=== PATIENT | female | born 1940 | race Caucasian/White ===

== ENCOUNTER 2020-01-31 08:39 | Inpatient (IN) ==
[~2020-01-31 08:39] MED LIST: Acetaminophen IV 1 GM/100ML 1,000 MG/100 ML VIAL IVPB ONE; Buffered Lidocaine 1% SYRIN 1 ml INTRADERM ONE; Dexamethasone IV 4 MG/ML VIAL 1 ml VIAL IV SLOW PU ONE; Famotidine IV 10 MG/ML 2 ml VIAL (20 mg) IV ONE; Lactated Ringers 1000 ml BAG 1,000 ML IV SCH
[2020-01-31] MEDS ORDERED: Acetaminophen IV 1 GM/100ML 100 ML ONE (09:24)
[2020-01-31] MEDS ORDERED: Dexamethasone IV 4 MG/ML VIAL 1 ml VIAL ONE (09:24)
[2020-01-31] MEDS ORDERED: ceFAZolin 2 GM PREMIX 2 GM/50 ML BAG ONE (09:24)
[2020-01-31] MEDS ORDERED: Famotidine IV 10 MG/ML 2 ml VIAL (20 mg) ONE (09:25)
[2020-01-31] MEDS ORDERED: Midazolam 2 mg/2 ml VIAL 1 mg/ml 2 ml VIAL (2 mg) ONE (10:18)
[2020-01-31] MEDS ORDERED: fentaNYL 100 mcg/2 ml 50 MCG/ML VIAL ONE (10:18)
[2020-01-31] MEDS ORDERED: ROPIVACAINE 5 MG/ML 30 ML BTL (0.5%) ONE (10:38)
[2020-01-31] MEDS ORDERED: Lidocaine 1% MPF 5 ML VIAL ONE (10:39)
[2020-01-31] MEDS ORDERED: Dexmedetomidine 200 mcg/2 ml 2 ml VIAL (200 mcg) ONE (10:40)
[2020-01-31] MEDS ORDERED: Lidocaine 2% PF 5 ML VIAL ONE ×2 (10:50→13:34)
[2020-01-31] MEDS ORDERED: EPHEDrine (Pressors) 50 MG/ML VIAL ONE (12:19)
[2020-01-31] MEDS ORDERED: HYDROmorphone 1 MG/1 ML SYRINGE IV PRN (13:17)
[2020-01-31] MEDS ORDERED: DiMENhydriNATE IV 50 mg/ml 1 ml VIAL IV PUSH PRN (13:17)
[2020-01-31] MEDS ORDERED: Naloxone 0.4 mg VIAL 0.4 mg/ml 1 ml VIAL IV PRN (13:17)
[2020-01-31] MEDS ORDERED: Ondansetron 4 mg VIAL 2 MG/ML 2 ml VIAL IV PRN ×2 (13:17→13:55)
[2020-01-31] MEDS ORDERED: fentaNYL 100 mcg/2 ml 50 MCG/ML VIAL IV PRN (13:17)
[2020-01-31] MEDS ORDERED: Propofol 10 MG/ML 20 ML BTL ONE (13:34)
[2020-01-31] MEDS ORDERED: Magnesium Hydroxide LIQ 30 ML UDC PO PRN (13:55)
[2020-01-31] MEDS ORDERED: diPHENhydraMINE 25 mg TAB PO PRN (13:55)
[2020-01-31] MEDS ORDERED: diPHENhydraMINE IV 50 MG/ML 1 ml VIAL (BENADRYL) IV PRN (13:55)
[2020-01-31] MEDS ORDERED: Lactulose 30 ml UDC PO PRN (13:55)
[2020-01-31] MEDS ORDERED: Ondansetron ODT 4 mg TAB 4 MG TAB PO PRN (13:55)
[2020-01-31] MEDS ORDERED: Albuterol HFA INHALER 8 gm MDI INH PRN (17:00)
[2020-01-31] MEDS: Lactated Ringers 1000 ml BAG 1,000 ML IV SCH (17:19)
[2020-01-31] MEDS: Mometasone/Formoter 200/5 MDI INH SCH (20:03)
[2020-01-31] MEDS: ceFAZolin 1 GM ADVAN 1 GM in NS 0.9% 50 ML 50 ML IVPB SCH (20:09)
[2020-01-31] MEDS: Magnesium Hydroxide LIQ 30 ML UDC PO SCH (20:10)
[2020-02-01] MEDS: Lactated Ringers 1000 ml BAG 1,000 ML IV SCH (03:50)
[2020-02-01] MEDS: ceFAZolin 1 GM ADVAN 1 GM in NS 0.9% 50 ML 50 ML IVPB SCH ×2 (03:50→11:55)
[2020-02-01 06:03] LABS: Hematocrit 28 % (35-47); Hemoglobin 9.3 g/dL (12.0-16.0); Mean Platelet Volume 6.6 fL (7.4-10.4); Platelet Count 211 10^3/uL (150-450)
[2020-02-01 06:25] LABS: BUN/Creatinine Ratio 20.5 (8-20); Potassium 4.2 mmol/L (3.5-5.0)
[2020-02-01] MEDS: Magnesium Hydroxide LIQ 30 ML UDC PO SCH (08:33)
[2020-02-01] MEDS: Mometasone/Formoter 200/5 MDI INH SCH (08:39)
[2020-02-01] MEDS ORDERED: Fluticasone NASAL SPRAY 50MCG 16 gm SPRAY BTL INTRANASAL SCH (09:00)
[2020-02-01] MEDS ORDERED: Vitamin THERAPEUTIC TAB PO SCH (09:00)
[2020-02-01] MEDS ORDERED: Calcitonin NASAL(NF) 200 UNITS/SPRAY NASAL.SPR SCH (09:00)
[2020-02-01] MEDS ORDERED: CMCS: Rosuvastatin 5 mg TAB (NF) PO SCH (09:00)
[2020-02-01] MEDS ORDERED: MIRABEGRON 50 MG PO SCH (09:00)
[2020-02-01 11:47] VITALS: BP 114/42
== END 2020-02-01 14:00 | disposition home health service (06) | DRG 470 ==
LOC: AA 08:39 → SSU 13:55
PROVIDERS: ADMIT Orthopaedic Surgery; ATTEND Orthopaedic Surgery